=== PATIENT | male | born 1990 | race Caucasian/White ===

== ENCOUNTER 2016-07-14 09:23 | Emergency (ER) | payer OTHER ==
[~2016-07-14] VITALS: Ht 180.3 cm; Wt 97.1 kg
[~2016-07-14 09:23] MED LIST: CIPRO 500MG TA500 MG PO; PERCOCET 325 MG1 TA2 PO
[2016-07-14 09:27] VITALS: BP 158/79
--- NOTE | 2016-07-14 10:03 | RADIOLOGY REPORT ---
EXAMINATION: XR SHOULDER, LEFT CLINICAL INFORMATION: Fracture or dislocation COMPARISON: None TECHNIQUE: AP external rotation, Grashey, scapular Y, and axillary views of the left shoulder. FINDINGS: The bones and soft tissues are normal. No fracture. Glenohumeral and acromioclavicular alignment is anatomic with normal joint space. No abnormal soft tissue calcifications. IMPRESSION: Normal left shoulder.
--- NOTE | 2016-07-14 10:35 | ED UPPER/LOWER EXTREMITY COMPL ---
History of Present Illness General Chief Complaint: Shoulder Injury Stated Complaint: L SHOULDER INJURY Source: patient Exam Limitations: no limitations Vital Signs & Intake/Output Vital Signs & Intake/Output Vital Signs Date Time Temp Pulse Resp B/P Pulse O2 O2 Flow FiO2 Ox Delivery Rate 07/14 0927 98.0 103 14 158/79 99 Room Air ED Intake and Output 07/15 0000 07/14 1200 Intake Total Output Total Balance Patient 214 lb Weight Allergies Coded Allergies: NO KNOWN ALLERGIES (01/14/13) Reconcile Medications Ciprofloxacin (Cipro) 500 MG TABLET 1 TAB PO BID INFECTION OXYCODONE HCL/ACETAMINOPHEN (Percocet 5-325 MG Tablet) 325 MG/5 MG TAB 1-2 TAB PO Q4-6 PRN PRN PAIN Triage Note: 26 Y/O MALE C/O L SHOULDER PAIN S/P FALL ON ICE YESTERDAY. STATES PAIN HAS IMPROVED SINCE YESTERDAY BUT HIS WORK WANTED HIM TO GET EVALUATED. DECLINES OFFER OF MEDS. WORKMANS COMP COMPLETED Triage Nurses Notes Reviewed? yes HPI: This patient is a 26-year-old male who presented to the emergency department today for evaluation of left shoulder pain. The patient reported that yesterday while he was at work he fell to the side and landed on his left shoulder. He reported that he landed on ice. The patient reported that yesterday the pain was a 10 out of 10 located over the top of the shoulder. He reported that today the pain is down to a 6 out of 10. It is nonradiating and throbbing. The patient refused any medication for pain at this time. The pain is worse with movement. He denies any elbow pain or wrist pain. He denied any numbness or tingling in his extremities. He denied any head strike or loss of consciousness. No neck pain. Past History Travel History Traveled to [place] past 21 day No Medical History Any Pertinent Medical History? see below for history Neurological: NONE EENT: NONE Cardiovascular: NONE Respiratory: NONE Gastrointestinal: NONE Hepatic: NONE Renal: NONE Musculoskeletal: NONE Psychiatric: NONE Endocrine: NONE Blood Disorders: NONE Cancer(s): NONE EQUIPMENT ENGINEER/Reproductive: scrotal abscess Surgical History Surgical History: non-contributory Psychosocial History What is your primary language [place] Tobacco Use: Current Daily Use Daily Tobacco Use Amount/Type: => 5 Cigarettes daily Family History Hx Contributory? No Review of Systems Review of Systems Constitutional: Reports: no symptoms. EENTM: Reports: no symptoms. Respiratory: Reports: no symptoms. Cardiovascular: Reports: no symptoms. Gastrointestinal/Abdominal: Reports: no symptoms. Musculoskeletal: Reports: see HPI. Skin: Reports: no symptoms. Neurological/Psychological: Reports: no symptoms. All Other Systems: Reviewed and Negative Physical Exam Physical Exam General Appearance: well developed/nourished, no apparent distress, alert, awake Comments: Well-developed well-nourished person in no acute distress HEENT: head normocephalic/atraumatic, moist mucous membranes Neck: Supple. No midline tenderness Back: Normal gait Respiratory: No respiratory distress. Speaking in full sentences Left upper extremity: No effusions or overlying erythema or ecchymosis to the joint spaces. Full range of motion of the shoulder, elbow, and wrist. No bony or muscular deformities appreciated. Tenderness to palpation over the proximal deltoid. No step-offs of the clavicle appreciated. Radial and brachial pulses 2+ and strong. Capillary refill less than 2 seconds. Neuro: Alert and oriented x3 Psych: Mood affect normal, normal memory normal judgment. Skin: Warm and dry, no rash on exposed skin Progress Differential Diagnosis: cellulitis, compartment syndrome, contusion, dislocation , DVT, fracture, gout, septic arthritis, sprain, tendon injury Plan of Care: Orders Procedure Date/time Status Durable Medical Equipment 07/14 1044 Active This patient is a 26-year-old male who presented to the emergency department today for evaluation of left shoulder pain. Unremarkable x-ray of the shoulder. This patient is abusing any medication for pain here in the emergency department. He will be given a sling for support at home. He will be given orthopedic follow-up. He was instructed on conservative management of his injury. Likely shoulder strain. Stable for discharge home. (MAKAYLA SORIANO,PIPE) Diagnostic Imaging: Viewed by Me: Radiology Read. Discussed w/RAD: Radiology Read. Radiology Impression: PATIENT: KAY MEEKS IV PRESENT AGE: 26 PATIENT ACCOUNT NO: [id number] : 91 LOCATION: [facility] ORDERING PHYSICIAN: JOHN SERRATO MD SERVICE DATE: 07/14/16 EXAM TYPE: RAD - XRY-SHOULDER COMPLETE-LEFT EXAMINATION: XR SHOULDER, LEFT CLINICAL INFORMATION: Fracture or dislocation COMPARISON: None TECHNIQUE: AP external rotation, Grashey, scapular Y, and axillary views of the left shoulder. FINDINGS : The bones and soft tissues are normal. No fracture. Glenohumeral and acromioclavicular alignment is anatomic with normal joint space. No abnormal soft tissue calcifications. IMPRESSION: Normal left shoulder. DICTATED BY: MONTSE GIBSON MD DATE/TIME DICTATED:07/14/16958 PLUSH WEAVER: PAOLO DATE/TIME TRANSCRIBED:07/14/16958 CONFIDENTIAL, DO NOT COPY WITHOUT APPROPRIATE AUTHORIZATION. <Electronically signed in Other Vendor System> SIGNED BY: MONTSE GIBSON MD 07/14/16 1003 Departure Departure Disposition: HOME OR SELF CARE Condition: Stable Clinical Impression Primary Impression: Shoulder strain Qualifiers: Encounter type: initial encounter Laterality: left Qualified Code: S46.912A - Strain of unspecified muscle, fascia and tendon at shoulder and upper arm level, left arm, initial encounter Referrals: CHAD ROMERO DO (PCP/Family) CARMEN PRIDE MD Additional Instructions: Take [id number] ibuprofen for pain and inflammation. Use the sling provided to here in the emergency Department for extra support. Gentle stretching. You may apply ice or heat to the affected area as needed. Please follow up with orthopedic physician is information has been provided to you in this packet for further evaluation and management. Return to the emergency department for any worsening symptoms or concerns. Departure Forms: Customer Survey Employee Industrial Accident General Discharge Information
== END 2016-07-14 11:05 ==
LOC: ERH 09:23
DX: S46.912A Strain of unspecified muscle, fascia and tendon at shoulder and upper arm level, left arm, initial encounter (principal); W00.0XXA Fall on same level due to ice and snow, initial encounter
CPT/HCPCS: 73030-LT